=== PATIENT | female | born 1980 | race African-American/Black ===

== ENCOUNTER 2017-09-24 12:33 | Emergency (ER) | payer SELFPAY ==
[~2017-09-24] VITALS: Wt 114.8 kg
[~2017-09-24 12:33] MED LIST: CITA20TA6; DOXY100C47; NO HOME MEDS
== END 2017-09-24 15:40 | disposition left against medical advice (07) ==
LOC: FTE 12:33
DX: Z53.21 Procedure and treatment not carried out due to patient leaving prior to being seen by health care provider (principal)

== ENCOUNTER 2019-04-14 13:43 | Emergency (ER) | payer OTHER ==
[~2019-04-14] VITALS: Wt 118.0 kg
[~2019-04-14 13:43] MED LIST changes: -CITA20TA6; +CITA20TA8
--- NOTE | 2019-04-14 14:13 | ERD ---
ER Documentation Chief Complaint Chief Complaint CWP ONSET 1 HR AGO HPI This is a 39-year-old female with a past medical history of asthma, migraines, depression, prediabetes is presenting with chest wall pain, beginning approximately 1 hour prior to arrival. She reports that it is worse with movement and relieved by rest. She describes it as waxing and waning and sharp. The patient does not endorse shortness of breath. She does not feel palpitations. She is not tachycardic. The patient's vital signs were unremarkable in triage. She denies diaphoresis. She denies nausea or vomiting. The patient denies lightheadedness or dizziness. She does not recall any trauma or injury or heavy lifting or extra exertion. It started while at rest in her car. She does not endorse feeling anxious. The patient denies feeling sick recently. The patient denies fever or chills. The patient has had no headache or vision changes. The patient does not endorse neck or back pain. The patient denies abdominal pain. The patient denies changes to bowel movements or urination. The patient has had no focal deficits. The patient has had no weakness or numbness or tingling to the face or extremities. ROS All systems reviewed and are negative except as per history of present illness. Medications Home Meds Reported Medications Ergocalciferol (Vitamin D2) (VITAMIN D2) 50,000 Unit Capsule, 16530 UNIT PO Q7D, CAP 04/14/19 Amphet Jcd-Vplhjg-X-Amphet (Adderall) 30 Mg Tablet, 30 MG PO DAILY, TAB 04/14/19 Bupropion Hcl* (Bupropion Hcl SR*) 150 Mg Tablet.er, 150 MG PO BID, TAB.SA 04/14/19 Discontinued Reported Medications [No Home Meds] No Conflict Check 08/23/12 Citalopram Hydrobromide* (Citalopram Hydrobromide*) 20 Mg Tablet 09/18/10 Doxycycline Hyclate (Doryx) 100 Mg Capsule. 09/18/10 Allergies Allergies: Coded Allergies: penicillin G (Verified Allergy, Mild, SOB, 04/14/19) Penicillins (Verified Allergy, Unknown, 04/14/19) PMhx/Soc History of Surgery: Yes (C SECTION X2, cholecystectomy '09) Anesthesia Reaction: No Hx Neurological Disorder: Yes (Migraines) Hx Respiratory Disorders: Yes (Asthma) Hx Cardiac Disorders: Yes (Prediabetes) Hx Psychiatric Problems: No Hx Miscellaneous Medical Probl: No Hx Alcohol Use: Yes (OCCASIONAL ) Hx Substance Use: No Hx Tobacco Use: No (3 LAST WEEK) FmHx Family History: No diabetes Physical Exam Vitals Vital Signs Date Temp Pulse Resp B/P (MAP) Pulse Ox O2 O2 Flow FiO2 Time Delivery Rate 04/14/19 71 16 120/76 98 Room Air 14:36 (91) 04/14/19 98.1 85 18 150/74 99 13:46 (99) Physical Exam Const: No acute distress Head: Atraumatic Eyes: Normal Conjunctiva ENT: Normal External Ears, Nose and Mouth. Neck: Full range of motion. No meningismus. Resp: Clear to auscultation bilaterally Cardio: Regular rate and rhythm, no murmurs Chest: Pinpoint left-sided chest wall tenderness, reproducing her symptoms. Abd: Soft, non tender, non distended. Normal bowel sounds Skin: No petechiae or rashes Back: No midline or flank tenderness Ext: No cyanosis, or edema Neur: Awake and alert Psych: Normal Mood and Affect Result Diagram: 04/14/19 1457 04/14/19 1457 Results 24 hrs Laboratory Tests Test 04/14/19 14:57 04/14/19 15:02 White Blood Count 4.6 10^3/ul Red Blood Count 4.17 10^6/ul Hemoglobin 11.5 g/dl Hematocrit 36.4 % Mean Corpuscular Volume 87.3 fl Mean Corpuscular Hemoglobin 27.6 pg Mean Corpuscular Hemoglobin Concent 31.6 g/dl Red Cell Distribution Width 13.5 % Platelet Count 279 10^3/UL Mean Platelet Volume 9.5 fl Immature Granulocytes % 0.200 % Neutrophils % 47.0 % Lymphocytes % 42.2 % Monocytes % 7.8 % Eosinophils % 2.4 % Basophils % 0.4 % Nucleated Red Blood Cells % 0.0 /100WBC Immature Granulocytes # 0.010 10^3/ul Neutrophils # 2.2 10^3/ul Lymphocytes # 2.0 10^3/ul Monocytes # 0.4 10^3/ul Eosinophils # 0.1 10^3/ul Basophils # 0.0 10^3/ul Nucleated Red Blood Cells # 0.0 10^3/ul Sodium Level 141 mmol/L Potassium Level 4.1 mmol/L Chloride Level 105 mmol/L Carbon Dioxide Level 31 mmol/L Anion Gap 5 Blood Urea Nitrogen 12 mg/dl Creatinine 0.82 mg/dl Est Glomerular Filtrat Rate mL/min > 60 mL/min Glucose Level 101 mg/dl Calcium Level 9.5 mg/dl Troponin I Pending POC Beta HCG, Qualitative NEGATIVE Current Medications Medications Dose Sig/Shira Start Time Status Last (Trade) Ordered Route PRN Stop Time Admin Dose Reason Admin Ketorolac 15 mg ONCE STAT 04/14/19 DC 04/14/19 Tromethamine IV 14:46 15:08 (Toradol) 04/14/19 14:47 Procedures/MDM MDM The patient's presentation warrants further investigation. Previous medical records, if available, were reviewed. LABS The patient's laboratory testing was obtained and reviewed. No emergent treatment was required unless described below. CBC: No E/o systemic infection or thrombocytopenia. Mild normocytic anemia, not emergent. Chemistry: No E/o severe acidosis or alkalosis or renal failure or diabetic ketoacidosis Troponin: No E/o acute ischemia EKG EKG read by me: Rate/Rhythm: Regular rate and rhythm at a rate of 80 bpm Intervals: Normal [place]: Normal Impression: No evidence of acute ischemia or arrhythmia IMAGING Imaging and Radiology interpretation reviewed. CXR FINDINGS: The heart and mediastinum are within normal limits. The pulmonary vasculature are unremarkable. The aorta is unremarkable. There is no lung consolidation, pleural effusion or pneumothorax. There is no acute osseous abnormality. IMPRESSION: No acute disease. Electronically viewed and signed by Annette Perkins MD, on 04/14/2019 15:30 TREATMENT/DISPOSITION The patient's chest xray does not reveal pneumonia or pneumothorax or pleural effusions or pulmonary edema. The patient does not have a widened mediastinum and does not have signs or symptoms concerning for thoracic aortic aneurysm or dissection. The patient does not have pneumomediastinum or signs concerning for esophageal tear or rupture. The patient has no clinical or radiographic signs of pericardial effusion or tamponade. The patient does not have pneumoperitoneum and I have decreased suspicion of viscus perforation as possible referred pain. The patient does not have a history of heart failure and I have low suspicion for this. The patient does not have a diagnosis of COPD and is not wheezing today. The patient is not tachypneic or hypoxic. The patient is breathing comfortably and without pleuritic pain. The patient is not on hormonal therapy. The patient has no history of clotting or bleeding disorders. The patient has no calf tenderness. The patient has had no hemoptysis. I have decreased suspicion for PE. The patient's troponin and EKG are reassuring. I have low suspicion for acute coronary syndrome. The patient's HEART score is equal to or less than 3. This stratifies the patient into the low risk (<1%) group for an major adverse cardiac event within the next 30 days. Shared decision making was enacted. The risks and benefits of admission and discharge were discussed with the patient and it was ultimately decided that the patient would be discharged with close outpatient follow up and evaluation for functional testing within 72 hours. The patient was treated with Toradol. DISCHARGE Upon reevaluation of the patient, symptoms have improved. No emergent diagnoses were identified. At this time, I feel that the patient stable for discharge. The patient was instructed to follow-up with a primary care physician in 1-3 days. The patient will be given strict precautions with which to return to the emergency department. Prescriptions: Ibuprofen The patient's blood pressure was elevated at greater than 120/80 while in the emergency department. The patient was otherwise stable with no evidence of hypertensive urgency or emergency. The patient does not require admission for blood pressure control. I have discussed with the patient the risks of hypertension. I have instructed the patient to return to the ER for any new or worsening symptoms including chest pain, shortness of breath, headache, blurred vision, confusion, nausea, vomiting or LOC. I have advised the patient to follow up with the primary care physician for outpatient monitoring and treatment for hypertension in 1-3 days. Disclaimer: Inadvertent spelling and grammatical errors are likely due to EHR/dictation software use and do not reflect on the overall quality of patient care. Note that the electronic time recorded on this note does not necessarily reflect the actual time of the patient encounter. Departure Diagnosis: Primary Impression: Chest wall pain Additional Impression: Normocytic anemia Condition: Stable Patient Instructions: Chest Pain, Uncertain Cause, Chest Wall Strain Additional Instructions: Thank you for for coming to [facility] for your care today. Please ask your nurse or provider if you have questions about your care today and do not leave until all your questions have been answered. Please use any medications given as directed and follow-up with your doctor (or the doctor you were referred to) in the next 1-3 days. If you do not have a primary care doctor you may follow up at the [facility] or [facility] (listed below). You may also use motrin and tylenol as needed for fever and/or pain unless instructed otherwise by your provider or nurse. Indications for more urgent follow-up have been discussed, but you may return to the Emergency Department at ANY time for any worrisome or worsening symptoms. If you have abdominal pain, please know that no test or exam you received is perfect and you should follow up within 8 hours for continued pain. If you had any imaging studies today, such as an X-Ray or CT Scan, these studies will be reviewed later by a radiologist. You will be called if there are important findings that were not identified today, so make sure the contact information you provided at registration is correct. If you received any narcotic pain control medicine today, such as Vicodin, Morphine or Dilaudid, your coordination and judgment may be affected for a numb er of hours. Please do not drive or operate heavy machinery, and you may want someone to assist you at home. If you were given a prescription for narcotic medication, be aware that it is very addictive- use sparingly and only if necessary. PLEASE SEEK FURTHER EVALUATION AND MANAGEMENT AT YOUR DOCTORS OFFICE WITHIN THE NEXT 1-3 DAYS. IT IS YOUR RESPONSIBILITY TO MAKE AN APPOINTMENT FOR FOLOW-UP CA RE. IF YOU HAVE A PRIMARY DOCTOR, PLEASE CALL THEIR OFFICE TO SCHEDULE AN APPOINTMENT FOR FOLLOW UP. IF YOU DO NOT HAVE A PRIMARY DOCTOR YOU CAN CALL OUR PHYSICIAN REFERRAL HOTLINE AT IF YOU CAN NOT AFFORD TO SEE A PHYSICIAN YOU CAN CHOSE FROM THE FOLLOWING [facility]: [facility] [id number] [facility]. [facility] [address] [facility]. [facility] [address] [facility] [facility] [address] [facility]. [facility] [address] [facility]. [facility]. [address] KEARA MOSER MD April 14, 2019 14:13
[2019-04-14] MEDS ORDERED: KETOROLAC 15 MG INJ IV STA (14:46)
[2019-04-14] MEDS ORDERED: BUPR150T18 PO (15:25)
[2019-04-14] MEDS ORDERED: ADDE30 PO (15:25)
[2019-04-14] MEDS ORDERED: ERGO500013 PO (15:26)
[2019-04-14] MEDS ORDERED: IBUP-1542 PO (16:36)
[2019-04-14 16:57] VITALS: BP 121/80; PULSE 67; RESP 14
== END 2019-04-14 16:57 | disposition home or self-care (01) ==
LOC: E/R 13:43
DX: D64.9 Anemia, unspecified (principal); J45.909 Unspecified asthma, uncomplicated; R40.2142 Coma scale, eyes open, spontaneous, at arrival to emergency department; R40.2252 Coma scale, best verbal response, oriented, at arrival to emergency department; R40.2362 Coma scale, best motor response, obeys commands, at arrival to emergency department
CPT/HCPCS: 71045; 80048; 81025; 84484; 85025; 93005; J1885; 36415; 96374